=== PATIENT | female | born 1980 | race African-American/Black ===

== ENCOUNTER → 2021-10-20 | Outpatient (CLI) | payer MEDICAID ==
[2021-10-20] VITALS (7 sets, daily range): BP systolic 110–147; BP diastolic 69–78
[~2021-10-20] VITALS: Ht 152.4 cm; Wt 117.9 kg
[~2021-10-20] MED LIST: REGENERON 1200mg/250ml NS 250 ML IV ONE
== END | disposition home or self-care (01) ==
LOC: ER 08:10
PROVIDERS: ATTEND Internal Medicine
DX: U07.1 COVID-19 (principal); J45.909 Unspecified asthma, uncomplicated; R51.9 Headache, unspecified; R19.7 Diarrhea, unspecified; R07.9 Chest pain, unspecified
CPT/HCPCS: J7050; M0243; Q0244

== ENCOUNTER 2023-07-12 06:59 | Day surgery (SDC) | payer MEDICAID ==
[2023-07-05 09:41] LABS: Basophils # (auto) 0.1 10 ^3/uL (0-0.2); Basophils % (auto) 0.8 % (0.0-2.0); Eosinophils # (auto) 0.2 10 ^3/uL (0-0.8); Eosinophils % (auto) 2.6 % (0.0-7.0); Hematocrit 39.3 % (36.0-46.0); Hemoglobin 13.1 g/dL (12.2-16.2); Lymphocytes # (auto) 2.4 10 ^3/uL (0.4-5.4); Lymphocytes % (auto) 29.7 % (10.0-50.0); Mean Corpuscular Hgb Conc. 33.4 g/dL (32.0-36.0); Mean Corpuscular Volume 80.8 fL (80.0-100.0); Monocytes # (auto) 0.4 10 ^3/uL (0-1.3); Monocytes % (auto) 5.2 % (0.0-12.0); Neutrophils % (auto) 61.7 % (37.0-80.0); Nucleated Red Blood Cells % 0.1 %; Red Blood Cells 4.86 10^6/uL (4.0-5.20); Red Cell Distribution Width 16.4 % (11.8-14.3); White Blood Cell 8.1 10^3/uL (4.4-10.8)
[2023-07-05 10:02] LABS: INR 0.98 (0.9-1.15); Partial Thromboplastin Time 27.9 SEC (24.5-34.5); Prothrombin Time 10.3 sec (9.3-11.8)
[2023-07-05 10:30] LABS: Urine Bacteria FEW /hpf (None Seen); Urine Blood Negative /uL (Negative); Urine Clarity Clear (Clear); Urine Color Yellow (Yellow); Urine Mucus FEW (None Seen); Urine Protein, UAD Negative (Negative); Urine Specific Gravity 1.023 (1.001-1.035); Urine Urobilinogen Normal (Negative); Urine WBC 1 /hpf (0 - 5); Urine pH 6.5 (5.0-8.0)
[2023-07-05 11:11] LABS: Alanine Aminotransferase 25 U/L (7-40); Alkaline Phosphatase 61 U/L (46-116); Anion Gap 8.6 (5-15); Calcium 9.4 mg/dL (8.7-10.4); Carbon Dioxide 28.4 mmol/L (20-30); Chloride 99 mmol/L (98-107); Glucose 150 mg/dL (74-106); Potassium 3.8 mmol/L (3.5-5.1); Sodium 136 mmol/L (136-145)
[2023-07-05 11:12] LABS: Albumin 4.4 g/dL (3.2-4.8); Aspartate Aminotransferase 15 U/L (13-40)
[2023-07-05 11:13] LABS: Bilirubin, Total 0.6 mg/dL (0.2-1.0); Total Protein 7.8 g/dL (5.7-8.2)
[2023-07-05 12:40] LABS: BUN/Creatinine Ratio 22.2 (10.0-20.0); Blood Urea Nitrogen 14 mg/dL (9-23)
[~2023-07-12] VITALS: Ht 152.4 cm; Wt 119.7 kg
[~2023-07-12 06:59] MED LIST changes: +ALBU0.084 IN; +ALBUAER3 IN; +DIPH25CA66 PO; +EPIN0.1I11 IJ; +FAMO20TA10 PO; +HYDR-5028 PO; +HYDR25TA5 PO; +LOSA25TA15 PO; -REGENERON 1200mg/250ml NS 250 ML IV ONE
[2023-07-12] MEDS ORDERED: PROPOFOL 10 MG/ML 20 ML IV ONE ×2 (08:12→08:25)
[2023-07-12] MEDS ORDERED: LIDOCAINE 2% (LOCAL ANESTH.) PF 5ml SDV ONE (08:13)
[2023-07-12 08:37] VITALS: TEMP 97.5
[2023-07-12 09:10] VITALS: BP 121/63; PULSE 85; RESP 16; O2SAT 99
== END 2023-07-12 09:25 | disposition home or self-care (01) ==
LOC: GI 06:59
PROVIDERS: ATTEND Internal Medicine Gastroenterology
DX: K92.1 Melena (principal); R14.0 Abdominal distension (gaseous); K29.50 Unspecified chronic gastritis without bleeding; K64.8 Other hemorrhoids
CPT/HCPCS: 36415; 43239; 45378; 80053; 81001; 84702; 85025; 85610; 85730; J2001; J2704; J7030